=== PATIENT | female | born 1980 | race African-American/Black ===

== ENCOUNTER 2019-03-09 23:15 | Emergency (ER) | payer MEDICAID ==
[~2019-03-09] VITALS: Ht 170.2 cm; Wt 77.0 kg
[2019-03-09] MEDS ORDERED: EPINEPHRINE 0.1MG/ML (1:10,000) 10ML SYR ONE ×2 (23:17→23:37)
[2019-03-09] MEDS ORDERED: SODIUM BICARBONATE 8.4% MEQ/ML 50ML VIAL IV ONE (23:17)
[2019-03-09] MEDS ORDERED: SODIUM BICARBONATE 8.4% 1 MEQ/ML 50ML SYR IV ONE ×4 (23:22→23:34)
[2019-03-09 23:51] LABS: BG BASE EXCESS 8.3 mmol/L (-2.0-2.0); BG CARBOXYHEMOGLOBIN 58.8 % (0.5-1.5); BG FRACTION INSPIRED OXYGEN 100; BG HCO3 ACT 37.1 mmol/L (22.0-26.0); BG METHEMOGLOBIN 0.3 % (0.0-1.5); BG OXYHEMOGLOBIN 38.9 % (94.0-97.0); BG PCO2 70.1 mmHg (35.0-45.0); BG PH 7.341 (7.350-7.450); BG PO2 448.3 mmHg (75.0-100.0); BG SAMPLE SITE LEFT FEMORAL; BG TOTAL HEMOGLOBIN 10.8 g/dL (12.0-18.0); BG VENT MODE AMBU BAG
== END 2019-03-09 23:41 | disposition expired ==
LOC: EDBD 23:15 → ER 23:15
DX: I46.9 Cardiac arrest, cause unspecified (principal); T22.00XA Burn of unspecified degree of shoulder and upper limb, except wrist and hand, unspecified site, initial encounter; X08.8XXA Exposure to other specified smoke, fire and flames, initial encounter; Y93.9 Activity, unspecified; Y92.032 Bedroom in apartment as the place of occurrence of the external cause
CPT/HCPCS: 31500; 36600; 82375; 82805; 92950; 99285; J3490